=== PATIENT | male | born 1970 | race Two or more races ===

== ENCOUNTER 2024-05-11 14:16 | Outpatient (RCR) | payer MEDICAID, SELFPAY ==
--- NOTE | 2024-05-11 14:37 | PTNOTE_ITS ---
PT OP Initial Eval Patient Information Outpatient Physical Therapy Treatment Date: 05/11/24 Visit Reasons: Right shoulder pain Medical Diagnosis: M77.8 Start of Care: 05/11/24 Date of Onset: 1 yr ago Smoking Status Smoking Status: Never smoker Initial Assessment Subjective: Pt is 53 yr old hungarian speaking male who reports onset of R shoulder pain x1 yr. Since then the pain has worsened and increases with lifting the arm to the side to reach OH and lifting objects. He had an MRI done in [place] that showed a torn tendon. PMH: none reported Imaging: Xrays with provider Pt goal: to get rid of the pain Objective: R shoulder AROM FF: 65 deg with painful catch and then he can lift to 95 deg Abd: 50 deg with pain HBB: to R glute Drop arm: positive Painful arc: positive [place]: positive Strength: 3-/5 limited by pain Assessment: Pt presents with very limited ROM and significant weakness consistent with RC tear. Pt not likely going to benefit from skilled therapy to meet goals and has poor rehab potential and most likely will have more pain after therapy visits. 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
== END 2024-06-04 23:59 | disposition home or self-care (01) ==
LOC: CPTX 14:16
PROVIDERS: PCP Nurse Practitioner Family; Referring Provider Nurse Practitioner Family; Visit Provider Nurse Practitioner Family
DX: M25.511 Pain in right shoulder (principal); R53.1 Weakness; M77.8 Other enthesopathies, not elsewhere classified
CPT/HCPCS: 97162

== ENCOUNTER → 2024-06-17 | Outpatient (CLI) | payer MEDICAID, SELFPAY ==
--- NOTE | 2024-06-17 15:00 | XR_ITS ---
MRI shoulder, right, without contrast. Date and time: June 17, 2024 1519 hours INDICATIONS: Right shoulder pain decreased range of motion numbness in the right arm joint clicking stiffness one year Technique: Multiple axial, sagittal and coronal sections of the shoulder have been obtained. Siemens high-resolution 1.5 [employer] MRI scanner is utilized. Axial fat-suppressed sections, TR 2350, TE 18 T2-weighted coronal fat-saturated images, TR 3500, TE 7100 T1-weighted coronal images, TR 500, TE 15 T2-weighted sagittal fat-saturated images, TR 3500, TE 57 T1-weighted sagittal sections, TR 504, TE 13. Findings: Supraspinatus tendon insertion is abnormal, 10 mm full-thickness tear. Infraspinatus tendon insertion is intact. Subscapularis insertion is intact. Subscapularis bursa is not seen. Long head of the biceps is in the bicipital groove. No definite tear of the biceps superior labral anchor is seen. Retraction of the musculotendinous junction of the rotator cuff is mild. Tendinosis pattern is moderate. Distance between the acromium and humeral head is 6 mm Atrophy of the supraspinatus muscle is mild . Atrophy of the infraspinatus muscle is mild. Sagittal sections demonstrate a horizontal acromion. Acromioclavicular joint demonstrates moderate osteoarthritis. Osacromiale is not identified. Fraying and irregularity anterior superior labral margins. Bony glenoid fossa on the sagittal sections does not demonstrate osseous defect. Occult fracture or area of avascular necrosis is not seen. Acromioclavicular joint separation is not visible. Defect in the posterolateral margin of the humeral head is not seen Impression: 10 mm full-thickness tear supraspinatous Fraying and irregularity anterosuperior labral margins
== END | disposition home or self-care (01) ==
PROVIDERS: PCP Nurse Practitioner Family; Referring Provider Nurse Practitioner Family; Visit Provider Nurse Practitioner Family
DX: M25.511 Pain in right shoulder (principal); M75.101 Unspecified rotator cuff tear or rupture of right shoulder, not specified as traumatic
CPT/HCPCS: 73221

== ENCOUNTER 2025-03-30 10:00 | Outpatient (RCR) | payer MEDICAID, SELFPAY ==
--- NOTE | 2025-03-10 15:28 | PTNOTE_ITS ---
PT OP Initial Eval Patient Information Outpatient Physical Therapy Treatment Date: 03/10/25 Visit Reasons: RT SHOULDER SURGERY Medical Diagnosis: M75.101 Treatment Dx #1: Right Shoulder Mobility Deficits Treatment Dx #2: Right Shoulder Pain Start of Care: 03/10/25 Date of Onset: 01/11/25 Smoking Status Smoking Status: Never smoker Initial Assessment Subjective: Pt is a 54 y/o male s/p right RTC repair 01/11/25 due to rotator cuff tear. Pt still has pain 6/10 with activities. Pt has limitation with overhead motions, lifting, chores, self care, cooking, cleaning, and performing recreational activities. Objective: Right Shoulder PROM Flexion: 90 deg Abduction: 75 deg ER: 80 deg Internal Rotation: NT Right Shoulder AROM Flexion: 30 deg Abduction: 45 deg ER and IR: unable Right Shoulder MMTs: grossly 3-/5 Right Scapula MMTs: grossly 3-/5 Assessment: Pt demonstrate right shoulder mobility and strength deficits s/p RTC repair leading to difficulty with ADLs. 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 1) Increase right shoulder PROM WFL in 12 wks to prevent frozen shoulder 2) Increase right shoulder AROM WFL in 12 wks to be able to perform overhead motions 3) Decrease shoulder pain to 2/19 in 12 wks to be able to perform chores 4) Increase right shoulder MMTs grossly to 4/5 in 12 wks to be able to perform recreational activities 5) Increase right scapula MMTs grossly to 4-/5 in 12 wks to be able to perform lifting activities 6) Indep with HEP Treatment Plan 1) Manual Therapy 2) Therapeutic Activities 3) Therapeutic Exercises 4) Modalities (ice, heat) Frequency and Duration: 2 x wk for 12 wks Certification Dates: 03/10/25 to 06/10/25 Procedure Charges OP PT Eval Mod Complex 30 minutes: Yes
--- NOTE | 2025-03-17 15:56 | PT.ODAYNRPT ---
PT Outpatient Daily Note OP Daily Note Outpatient Physical Therapy Treatment Date: 03/17/25 Visit Reasons: RT SHOULDER SURGERY Subjective: Pt's shoulder feels okay but sore. Pt has been taking off the sling more lately. Objective: Please see flow chart for list of ther ex performed Assessment: cues to work up to the pain during all exercises. Pt demonstrate progression with shoulder flexion and scaption AAROM Plan: Continue with PT Length of Time (minutes) of Treatment: 30 Minutes Procedure Charges Therapeutic Exercise 30 minutes: Yes
--- NOTE | 2025-03-23 11:58 | PT.ODAYNRPT ---
PT Outpatient Daily Note OP Daily Note Outpatient Physical Therapy Treatment Date: 03/23/25 Visit Reasons: RT SHOULDER SURGERY Subjective: Pt reports R shoulder still feels stiff and achy. Objective: Please see flow sheet for ther ex list. Assessment: Pt educated on avoiding heavy lifting, pushing, pulling due to post op timeline. Plan: Continue with pOC. Length of Time (minutes) of Treatment: 30 Minutes Procedure Charges Therapeutic Exercise 30 minutes: Yes
--- NOTE | 2025-03-30 11:20 | PT.ODAYNRPT ---
PT Outpatient Daily Note OP Daily Note Outpatient Physical Therapy Treatment Date: 03/30/25 Visit Reasons: RT SHOULDER SURGERY Subjective: Pt's shoulder feeling better. Pt still has pain and limitation with shoulder abduction Objective: Please see flow chart for list of ther ex perfomed Assessment: progressing with shoulder flexion, scaption, and abduction AAROM with less pain reported. Progress isometric to more isokinetic with YTB with good tolerance and form Plan: Continue with PT Length of Time (minutes) of Treatment: 30 Minutes Procedure Charges Therapeutic Exercise 30 minutes: Yes
== END 2025-04-03 23:59 | disposition home or self-care (01) ==
LOC: CPTX 10:00
PROVIDERS: PCP Orthopaedic Surgery; Referring Provider Orthopaedic Surgery; Visit Provider Orthopaedic Surgery
DX: M25.511 Pain in right shoulder (principal); Z98.890 Other specified postprocedural states
CPT/HCPCS: 97110; 97162

== ENCOUNTER 2025-04-19 08:00 | Outpatient (RCR) | payer MEDICAID, SELFPAY ==
--- NOTE | 2025-04-04 11:28 | PT.ODAYNRPT ---
PT Outpatient Daily Note OP Daily Note Outpatient Physical Therapy Treatment Date: 04/04/25 Visit Reasons: RT shoulder surgery Subjective: Pt's shoulder is painful, however, notice slight improvement with arm movement Objective: Please see flow chart for list of ther ex performed Assessment: less pain reported with sitting aspen exercise today. Progress patient to supine punch and flexion AROM today with minimal cues to correct form for proper muscle recruitment Plan: Continue with PT Length of Time (minutes) of Treatment: 30 Minutes Procedure Charges Therapeutic Exercise 30 minutes: Yes
--- NOTE | 2025-04-07 12:02 | PT.ODAYNRPT ---
PT Outpatient Daily Note OP Daily Note Outpatient Physical Therapy Treatment Date: 04/07/25 Visit Reasons: RT shoulder surgery Subjective: Pt reports R shoulder is doing better, notices that his shoulder movement is improving. Objective: Please see flow sheet for ther ex list. Assessment: Focus on restoring ROM of shoulder, minimal guarding during PROM. Plan: Continue with pOC. Length of Time (minutes) of Treatment: 30 Minutes Procedure Charges Therapeutic Exercise 30 minutes: Yes
--- NOTE | 2025-04-12 10:53 | PT.ODAYNRPT ---
PT Outpatient Daily Note OP Daily Note Outpatient Physical Therapy Treatment Date: 04/12/25 Visit Reasons: RT shoulder surgery Subjective: Pt continues to have pain, however, notice improved arm movement and useage. Pt has been able to assist with dressing and overhead motions. Objective: Please see flow chart for list of ther ex performed Assessment: progressing with shoulder AROM with recruitment of upper trape with arm movement. Pt had difficulty tolerate shoulder ER stretch with shoulder at 90 deg abduction and modified back to 45 deg with better tolerance of the stretch Plan: Continue with PT Length of Time (minutes) of Treatment: 30 Minutes Procedure Charges Therapeutic Exercise 30 minutes: Yes
--- NOTE | 2025-04-14 08:26 | PT.ODAYNRPT ---
PT Outpatient Daily Note OP Daily Note Outpatient Physical Therapy Treatment Date: 04/14/25 Visit Reasons: RT shoulder surgery Subjective: Pt's shoulder sore from previous session but notice arm improvement after last session Objective: Please see flow chart for list of ther ex performed Assessment: progressing with shoulder flexion, abduction in supine position with less pain. Pt tolerated shoulder ER stretch with less guarding Plan: Continue with PT Length of Time (minutes) of Treatment: 30 Minutes Procedure Charges Therapeutic Exercise 30 minutes: Yes
--- NOTE | 2025-04-19 08:55 | PT.ODAYNRPT ---
PT Outpatient Daily Note OP Daily Note Outpatient Physical Therapy Treatment Date: 04/19/25 Visit Reasons: RT shoulder surgery Subjective: Pt's shoulder feels much better, however, the cold had cause some stiffness. Pt notice progress with stretching. Objective: Please see flow chart for list of ther ex performed Assessment: progressing with shoulder ER AAROM and less pain reported with shoulder ER stretch Plan: Continue with PT Length of Time (minutes) of Treatment: 30 Minutes Procedure Charges Therapeutic Exercise 30 minutes: Yes
== END 2025-05-04 23:59 | disposition home or self-care (01) ==
LOC: CPTX 08:00
PROVIDERS: PCP Orthopaedic Surgery; Referring Provider Orthopaedic Surgery; Visit Provider Orthopaedic Surgery
DX: M25.511 Pain in right shoulder (principal); Z98.890 Other specified postprocedural states
CPT/HCPCS: 97110